=== PATIENT | female | born 1985 | race Two or more races ===

== ENCOUNTER 2023-09-09 17:59 | Emergency (ER) | payer SELFPAY ==
[~2023-09-09] VITALS: Ht 160 cm; Wt 118.8 kg
[2023-09-09 20:01] LABS: Basophils # (auto) 0 10 ^3/uL (0-0.2); Basophils % (auto) 0.4 % (0.0-2.0); Eosinophils # (auto) 0.3 10 ^3/uL (0-0.8); Eosinophils % (auto) 2.3 % (0.0-7.0); Hematocrit 46.9 % (36.0-46.0); Hemoglobin 15.4 g/dL (12.2-16.2); Lymphocytes # (auto) 2.9 10 ^3/uL (0.4-5.4); Lymphocytes % (auto) 25.9 % (10.0-50.0); Mean Corpuscular Hemoglobin 28.8 pg (28.0-32.0); Mean Corpuscular Hgb Conc. 32.8 g/dL (32.0-36.0); Mean Corpuscular Volume 87.8 fL (80.0-100.0); Monocytes # (auto) 0.8 10 ^3/uL (0-1.3); Monocytes % (auto) 6.9 % (0.0-12.0); Neutrophils # (auto) 7.2 10 ^3/uL (1.6-8.6); Neutrophils % (auto) 64.5 % (37.0-80.0); Nucleated Red Blood Cells % 0.1 %; Red Blood Cells 5.35 10^6/uL (4.0-5.20); Red Cell Distribution Width 13.6 % (11.8-14.3); White Blood Cell 11.1 10^3/uL (4.4-10.8)
[2023-09-09 20:14] LABS: Alanine Aminotransferase 25 U/L (7-40); Albumin 4.5 g/dL (3.2-4.8); Alkaline Phosphatase 106 U/L (46-116); Anion Gap 5 (5-15); Aspartate Aminotransferase 15 U/L (13-40); BUN/Creatinine Ratio 15.6 (10.0-20.0); Bilirubin, Total 0.5 mg/dL (0.2-1.0); Blood Urea Nitrogen 12 mg/dL (9-23); Calcium 9.7 mg/dL (8.5-10.1); Carbon Dioxide 29 mmol/L (20-30); Chloride 106 mmol/L (98-107); Glucose 90 mg/dL (74-106); Potassium 3.9 mmol/L (3.5-5.1); Sodium 140 mmol/L (136-145)
[2023-09-09 20:15] LABS: Total Protein 7.3 g/dL (5.7-8.2)
[2023-09-09 23:01] LABS: Urine Amorphous Crystal FEW /hpf (None Seen); Urine Bacteria FEW /hpf (None Seen); Urine Blood Negative /uL (Negative); Urine Clarity Turbid (Clear); Urine Color Light-Orange (Yellow); Urine Mucus FEW (None Seen); Urine Protein, UAD TRACE (Negative); Urine Urobilinogen Normal (Negative); Urine WBC 50 /hpf (0 - 5)
[2023-09-09] MEDS ORDERED: ZOFR4T PO (23:11)
[2023-09-09] MEDS ORDERED: CEPH500C PO (23:11)
[2023-09-09] MEDS ORDERED: MECL25CH85 PO (23:11)
[2023-09-09] MEDS: SODIUM CHLORIDE 0.9% 1,000 ML IV ONE (23:28)
[2023-09-09] MEDS: cefTRIAXone 1GM/50ML D5W 50 ML IV ONE (23:36)
[2023-09-09] MEDS: ONDANSETRON HCL 4 MG/2 ML VIAL IV ONE (23:37)
[2023-09-09] MEDS: MECLIZINE HCL 25 MG TAB PO ONE (23:38)
[2023-09-09] MEDS: ACETAMINOPHEN 325 MG TAB PO ONE (23:38)
[2023-09-10 00:30] VITALS: BP 128/65; PULSE 105; RESP 16; TEMP 98.3; O2SAT 96
== END 2023-09-10 00:46 | disposition home or self-care (01) ==
LOC: ER 17:59
DX: R42 Dizziness and giddiness (principal); R10.2 Pelvic and perineal pain; R51.9 Headache, unspecified; N39.0 Urinary tract infection, site not specified; Z32.02 Encounter for pregnancy test, result negative
CPT/HCPCS: 36415; 70450; 80053; 81001; 81025; 84484; 84702; 85025; 93005; 96365; 96375; 99285; J0696; J2405; J7030; J8597

== ENCOUNTER 2023-12-26 11:17 | Emergency (ER) | payer MEDICAID ==
[~2023-12-26] VITALS: Ht 157.5 cm; Wt 111.7 kg
[~2023-12-26 11:17] MED LIST: CEPH500C PO; MECL25CH85 PO; ZOFR4T PO
[2023-12-26 12:08] LABS: Urine Bacteria None Seen /hpf (None Seen)
[2023-12-26 12:15] LABS: Urine Blood 3+ /uL (Negative); Urine Clarity Clear (Clear); Urine Color Yellow (Yellow); Urine Mucus FEW (None Seen); Urine Protein, UAD TRACE (Negative); Urine Specific Gravity 1.023 (1.001-1.035); Urine Urobilinogen Normal (Negative); Urine WBC 5 /hpf (0 - 5); Urine pH 6.5 (5.0-9.0)
[2023-12-26 14:14] VITALS: BP 135/87; PULSE 84; RESP 20; TEMP 98; O2SAT 96
== END 2023-12-26 14:16 | disposition home or self-care (01) ==
LOC: ER 11:24
DX: O20.8 Other hemorrhage in early pregnancy (principal); R10.2 Pelvic and perineal pain; I10 Essential (primary) hypertension; Z98.890 Other specified postprocedural states; Z3A.01 Less than 8 weeks gestation of pregnancy
CPT/HCPCS: 36415; 81001; 84702

== ENCOUNTER 2024-01-16 18:45 | Emergency (ER) | payer MEDICAID ==
[~2024-01-16] VITALS: Ht 157.5 cm; Wt 116.0 kg
[~2024-01-16 18:45] MED LIST changes: +ACET-1304 PO
[2024-01-16 20:08] LABS: Basophils # (auto) 0 10 ^3/uL (0-0.2); Basophils % (auto) 0.5 % (0.0-2.0); Eosinophils # (auto) 0.4 10 ^3/uL (0-0.8); Hematocrit 42.1 % (36.0-46.0); Hemoglobin 14.4 g/dL (12.2-16.2); Lymphocytes # (auto) 3.2 10 ^3/uL (0.4-5.4); Lymphocytes % (auto) 34.3 % (10.0-50.0); Mean Corpuscular Hemoglobin 30.1 pg (28.0-32.0); Mean Corpuscular Hgb Conc. 34.1 g/dL (32.0-36.0); Mean Corpuscular Volume 88.4 fL (80.0-100.0); Monocytes # (auto) 0.7 10 ^3/uL (0-1.3); Monocytes % (auto) 7.7 % (0.0-12.0); Neutrophils % (auto) 53.5 % (37.0-80.0); Nucleated Red Blood Cells % 0.2 %; Platelet Count (auto) 289 10^3/uL (140-450); Red Blood Cells 4.76 10^6/uL (4.0-5.20); Red Cell Distribution Width 14.2 % (11.8-14.3); White Blood Cell 9.3 10^3/uL (4.4-10.8)
[2024-01-16 20:27] LABS: Alanine Aminotransferase 26 U/L (7-40); Albumin 4.4 g/dL (3.2-4.8); Alkaline Phosphatase 88 U/L (46-116); Anion Gap 3 (5-15); Aspartate Aminotransferase 20 U/L (13-40); BUN/Creatinine Ratio 15.6 (10.0-20.0); Bilirubin, Total 0.3 mg/dL (0.2-1.0); Blood Urea Nitrogen 12 mg/dL (9-23); Calcium 9.5 mg/dL (8.7-10.4); Carbon Dioxide 29 mmol/L (20-31); Chloride 108 mmol/L (98-107); Glucose 108 mg/dL (74-106); Potassium 3.6 mmol/L (3.5-5.1); Sodium 140 mmol/L (136-145); Total Protein 7.2 g/dL (5.7-8.2)
[2024-01-17 00:54] VITALS: BP 128/73; PULSE 60; RESP 17; TEMP 98.1; O2SAT 96
== END 2024-01-17 00:55 | disposition home or self-care (01) ==
LOC: ER 18:45
DX: O20.9 Hemorrhage in early pregnancy, unspecified (principal); R10.2 Pelvic and perineal pain; I10 Essential (primary) hypertension; Z98.890 Other specified postprocedural states; Z3A.01 Less than 8 weeks gestation of pregnancy
CPT/HCPCS: 36415; 76856; 80053; 84702; 85025; 86850; 86900; 86901

== ENCOUNTER 2024-05-07 20:09 | Emergency (ER) | payer MEDICAID ==
[~2024-05-07] VITALS: Ht 157.5 cm; Wt 120.9 kg
[2024-05-07 21:07] VITALS: BP 134/63; PULSE 88; RESP 18; O2SAT 98
--- NOTE | 2024-05-07 21:16 | ED.PDOC ---
GEOGRAPHY TEACHER HPI Comments This patient is a pleasant but morbidly obese 38 y/o F, presents to the ED for CC of right sides rib pain. Patient states, that she was moping at home when she slipped and fell landing on her right side. Patient comments on, currently being 16 weeks and is concerned over the health of her ; s/p fall. Patient denies head injury, LOC, vaginal bleeding, abdominal pain or N/V/D. No other symptoms or modifying factors at this time. Vital signs were stable on arrival. Chief Complaint: Abdominal Pain Time Seen by MD: 21:00 Reviewed Notes: Nurses Notes, Medications, Allergies Allergies: Coded Allergies: No Known Drug Allergy (Verified Allergy, Unknown, 09/09/23) Home Meds Active Scripts Acetaminophen (Tylenol Extra Strength) 500 Mg Tab, 1000 MG PO Q6HP PRN, #30 TAB prn pain or fever Prov:BIANCA AYALA MD 01/10/24 Cephalexin Monohydrate (Cephalexin) 500 Mg Cap, 1 CAP PO QID for 10 Days, #40 CAP Prov:BIANCA AYALA MD 01/10/24 Ondansetron Odt 4MG Tab (ZOFRAN PO) 4 Mg Tb, 1 TAB PO Q8HPRN PRN, #10 TAB as needed for nausea vomiting ODT TAB-DISSOLVE IN MOUTH, THEN SWALLOW Prov:LE BRIGGS NP 09/09/23 Meclizine HCl (Antivert) 25 Mg Chw, 1 TAB PO Q8HPRN PRN, #20 TAB.CHEW as needed for for dizziness Prov:LE BRIGGS SPOUT WORKER 09/09/23 Cephalexin Monohydrate (Cephalexin) 500 Mg Cap, 1 CAP PO QID for 10 Days, #40 CAP Prov:LE BRIGGS SPOUT WORKER 09/09/23 Information Source: Patient Mode of Arrival: Ambulatory Timing: Hours Prehospital treatment: None Severity: None Vaginal Discharge: None Vaginal Lesions: None Vaginal Mass: None Onset Of Mass/Bleeding: Unknown Sexual Activity: Last Consensual [place]: Unknown Blood Type: Unknown Symptoms of Possible : None Associated Signs and Symptoms: None Past Medical History PAST MEDICAL HISTORY: Anemia, HTN Past Medical History (Other): Patient states currently 16 weeks Surgical History: Hernia Repair ESL PROFESSOR History: Other Family History Family History: Family hx of DM, Family hx of Cancer, Family hx of heart iona, Family hx of HTN Social History Smoker: Non-Smoker Alcohol: Denies ETOH Use Drugs: Denies Drug Use Lives In: Home Constitutional: denies: chills, diaphoresis, fatigue, fever, malaise, sweats, weakness, others EENTM: denies: blurred vision, double vision, ear bleeding, ear discharge, ear drainage, ear pain, ear ringing, eye pain, eye redness, hearing loss, mouth pain, mouth swelling, nasal discharge, nose bleeding, nose congestion, nose pain, photophobia, tearing, throat pain, throat swelling, voice changes, others Respiratory: denies: cough, hemoptysis, orthopnea, SOB at rest, shortness of breath, SOB with excertion, stridor, wheezing, others Cardiovascular: denies: chest pain, dizzy spells, diaphoresis, Dyspnea on exertion, edema, irregular heart beat, left arm pain, lightheadedness, palpitations, PND, syncope, others Gastrointestinal: reports: abdominal pain; denies: abdomen distended, blood streaked bowels, constipated, diarrhea, dysphagia, difficulty swallowing, hematemesis, melena, nausea, poor appetite, poor fluid intake, rectal bleeding, rectal pain, vomiting, others Genitourinary: denies: abnormal vagina bleeding, burning, dyspareunia, dysuria, flank pain, frequency, hematuria, incontinence, pain, , vagina discharge, urgency, others Neurological: denies: dizziness, fainting, headache, left sided numbness, left sided weakness, numbness, paresthesia, pre-existing deficit, right sided numbness, right sided weakness, seizure, speech problems, tingling, tremors, weakness, others Musculoskeletal: reports: others (right sided rib pain); denies: back pain, gout, joint pain, joint swelling, muscle pain, muscle stiffness, neck pain Integumetry: denies: bruises, change in color, change in hair/nails, dryness, laceration, lesions, lumps, rash, wounds, others Allergic/Immunocompromised: denies: Difficulty Healing, Frequent Infections, Hives, Itching, others Hematologic/Lymphatic: denies: anemia, blood clots, easy bleeding, easy bruising, swollen glands, others Endocrine: denies: excessive hunger, excessive sweating, excessive thirst, excessive urination, flushing, intolerance to cold, intolerance to heat, unexplained weight gain, unexplained weight loss, others Psychiatric: denies: anxiety, bipolar disorder, depression, hopeless, panic disorder, schizophrenia, sleepless, suicidal, others All Other Systems: Reviewed and Negative Physical Exam Exam Comments Difficult to assess due to body habitus. General Appearance: Moderate Distress ([id number] distress due to right- sided rib and belly pain concerns.), Normal HEENT: Normal ENT Inspection, Pharynx Normal, TMs Normal Neck: Full Range of Motion, Non-Tender, Normal, Normal Inspection Respiratory: Chest Non-Tender, Lungs Clear, No Accessory Muscle Use, No Respiratory Distress, Normal Breath Sounds Cardiovascular: No Edema, No JVD, No Murmur, No Gallop, Normal Peripheral Pulses, Regular Rate/Rhythm Breast Exam: Deferred Gastrointestinal: Other (Patient complains of diffuse right-sided abdominal and lower rib tenderness. No signs of trauma. No edema or ecchymosis. No crepitus.) Genitalia: Deferred Pelvic: Deferred Rectal: Deferred Extremities: No calf tenderness, Normal capillary refill, Normal inspection, Normal range of motion, Non-tender, No pedal edema Neurologic: Alert, No Motor Deficits, Normal Affect, Normal Mood, No Sensory Deficits Cerebellar Function: Normal Reflexes: Normal Skin: Dry, Normal Color, Warm Lymphatic: No Adenopathy Was a procedure done? Was a procedure done?: No Differential Diagnosis (ESL PROFESSOR) Vaginal Bleeding: N/A Mass / Lesion: Other (Right-sided rib contusion, abdominal pain), N/A Vaginal Discharge: N/A X-Ray, Labs, Meds, VS Vital Signs Date Time Temp Pulse Resp B/P (MAP) Pulse Ox O2 Delivery O2 Flow Rate FiO2 05/07/24 21:07 99.1 88 18 134/63 (86) 98 Current Medications Medications (Trade) Dose Ordered Sig/Ilya Route Start Time Stop Time Status Last Admin Acetaminophen (Tylenol Tablet) 1,000 mg ONCE ONCE PO 05/07/24 20:45 05/07/24 20:46 DC 05/07/24 21:18 X-Ray, Labs, Meds, VS Comment All studies performed the ED were evaluated by me personally. The ultrasound confirmed a 16 week three day that is healthy. Patient seems to have sustained a rib contusion and abdominal contusion. Advised Tylenol as needed for symptomatic pain relief. Time of 1ST Reevaluation: 21:41 Reevaluation 1ST: Improved Consultation: PCP, boat repairer Patient Education/Counseling: Diagnosis, Treatment Family Education/Counseling: Diagnosis, Treatment, No Family Present Departure 1 Departure Time of Disposition: 21:41 Impression: Primary Impression: Abdominal pain Additional Impression: Contusion of rib on right side Disposition: HOME / SELF CARE / HOMELESS Condition: Stable Additional Instructions: Advised Tylenol as needed for symptomatic pain relief as well as ice therapy. e-Prescriptions Acetaminophen (Acetaminophen) 500 Mg Tab 500 MG PO Q4HP PRN, #20 TAB Prov: JOSE TELLO PAC 05/07/24 Discharged With: Self, Relative Critical Care Note Critical Care Time?: No Stability Stability form required: No Heart Score Heart Score: Heart Score Response (Comments) Value History N/A 0 EKG N/A 0 Age N/A 0 Risk Factors N/A 0 Troponin N/A 0 Total 0 I personally scribed for JOSE TELLO PAC ([email or web address]) on 05/07/24 at 21:16. Electronically submitted by Pippa Bean ([email or web address]). JOSE TELLO PAC May 07, 2024 21:16
[2024-05-07] MEDS: ACETAMINOPHEN 325 MG TAB PO ONE (21:18)
--- NOTE | 2024-05-07 21:26 | DVH ---
OB ULTRASOUND, LIMITED CLINICAL INDICATION: Fall TECHNIQUE: Multiple grayscale ultrasound and M-mode images were obtained of the pelvis for evaluation of intrauterine . COMPARISON: None FINDINGS: A single living fetus is seen in breech presentation. Biparietal diameter: 3.35 cm (16 weeks, 3 days) Head Circumference: 12.66 cm (16 weeks, 3 days) Abdomen Circumference: 10.46 cm (16 weeks, 3 days) Femur Length: 2.04 cm (16 weeks, 1 days) Estimated weight: 151 grams (+/- 23 grams). Placenta: Lateral right. Amniotic fluid: Visibly normal. Cervical length is 4 cm and closed. heart rate: 149 beats/min. A complete anatomic survey was not performed on this exam. IMPRESSION: Single intrauterine with an estimated gestational age of 16 weeks, 3 days, corresponding to an estimated date of delivery of 10/19/2024.
[2024-05-07] MEDS ORDERED: ACET500T58 PO (21:42)
== END 2024-05-07 22:22 | disposition home or self-care (01) ==
LOC: ER 20:09
DX: O9A.212 Injury, poisoning and certain other consequences of external causes complicating pregnancy, second trimester (principal); O26.892 Other specified pregnancy related conditions, second trimester; S20.211A Contusion of right front wall of thorax, initial encounter; R10.84 Generalized abdominal pain; I10 Essential (primary) hypertension; Z3A.16 16 weeks gestation of pregnancy; Z98.890 Other specified postprocedural states; W01.0XXA Fall on same level from slipping, tripping and stumbling without subsequent striking against object, initial encounter; Y93.E5 Activity, floor mopping and cleaning; Y92.009 Unspecified place in unspecified non-institutional (private) residence as the place of occurrence of the external cause; Y99.8 Other external cause status
CPT/HCPCS: 76805